=== PATIENT | female | born 2000 ===

== ENCOUNTER → 2020-11-23 | Outpatient (CLI) | payer OTHER | END | disposition home or self-care (01) | LOC: CFH 13:04 → EDSTATUS 13:30 | PROVIDERS: ATTEND Nurse Practitioner Family | DX: E05.90 Thyrotoxicosis, unspecified without thyrotoxic crisis or storm (principal); E07.89 Other specified disorders of thyroid | CPT/HCPCS: 76536 ==

== ENCOUNTER 2020-12-20 08:38 | Outpatient (CLI) | payer OTHER | END 2020-12-20 23:59 | disposition home or self-care (01) | LOC: CARD 08:38 → MERGE 09:00 → CARD 23:59 | PROVIDERS: ATTEND Nurse Practitioner Family | DX: Z02.9 Encounter for administrative examinations, unspecified (principal) ==

== ENCOUNTER 2020-12-21 14:43 | Outpatient (CLI) | payer OTHER | END 2020-12-21 23:59 | disposition home or self-care (01) | LOC: CARD 14:43 | PROVIDERS: ATTEND Nurse Practitioner Family | DX: I47.1 Supraventricular tachycardia (principal); I47.9 Paroxysmal tachycardia, unspecified | CPT/HCPCS: 93225; 93226 ==